=== PATIENT | male | born 1965 | race American Indian/Alaskan Native ===

== ENCOUNTER 2020-02-02 11:14 | Emergency (ER) | payer BC ==
[2020-02-02 11:26] VITALS: BP 141/76
--- NOTE | 2020-02-02 11:52 | XRay Report ---
CHEST PA AND LATERAL VIEWS INDICATION: sob, cough. COMPARISON: None. FINDINGS: Support devices: None. Heart: Within normal limits. Lungs/Pleura: No acute pulmonary or pleural findings. IMPRESSION: 1. No acute findings. Signer Name: Nathanael Shin MD Signed: 02/02/2020 11:48 AM Workstation Name: [id number]
--- NOTE | 2020-02-02 13:41 | Emergency Department Report ---
Chief Complaint: Upper Respiratory Infection Stated Complaint: SOB/BAD COUGH Time Seen by Provider: 02/02/20 13:33 - HPI History of Present Illness: 54-year-old -[place] male presents to the emergency room complaining of a cough and shortness of breath and fatigue for greater than a week. 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 Patient admits to cough sneezing allergies from pollen. Patient reports is taken [id number] Claritin-D and exbx-tbe-ngnheen cough medications but not sure of the name. Patient denies any abdominal pain chest pain nausea vomiting diarrhea. - Exam Vital Signs: Vital Signs 02/02/20 11:21 Temperature 98.6 F Pulse Rate 66 Respiratory 18 Rate Blood Pressure 141/76 O2 Sat by Pulse 99 Oximetry Physical Exam: Gen: alert oriented NAD Cardic: regular rate and rhythm no murmurs appreciated Resp: Clear to auscultation bilateral no wheezing no rales or rhonchi. Abdomen: Soft nontender nondistended normal bowel sounds. Patient is ambulatory without difficulties no signs of distress. MSE screening note: Focused history and physical exam performed. Due to findings the following was ordered: 54-year-old -[place] male presents to the emergency room complaining of a cough and shortness of breath and fatigue for greater than a week. 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 Patient admits to cough sneezing allergies from pollen. Patient reports is taken iknl-ptc-cquctcs Claritin-D and jzjf-dlj-tqspvxz cough medications but not sure of the name. Patient denies any abdominal pain chest pain nausea vomiting diarrhea. Chest x-ray is negative for any acute findings. Your vital signs are stable. You are satting her oxygen levels at 99% which is normal. Continue with your Claritin-D follow-up with your primary care provider if your symptoms persist or gets worse ED Disposition for MSE Disposition: Z-07 MED SCREENING EXAM-LEFT Is pt being admited?: No Does the pt Need Aspirin: No Condition: Stable Additional Instructions: Chest x-ray is negative for any acute findings. Your vital signs are stable. You are satting her oxygen levels at 99% which is normal. Continue with your Claritin-D follow-up with your primary care provider if your symptoms persist or gets worse Referrals: Your, [place] provider [Other] - 3-5 Days Forms: Work/School Release Form(ED)
== END 2020-02-02 13:53 | disposition left against medical advice (07) ==
LOC: ED 11:14
DX: R05 Cough (principal); R06.02 Shortness of breath; R53.83 Other fatigue
CPT/HCPCS: 71046; 99283